=== PATIENT | female | born 1985 | race Caucasian/White ===

== ENCOUNTER → 2023-02-26 11:29 | Outpatient (CLI) | payer BC, SELFPAY ==
--- NOTE | ~2023-02-26 | MR_ITS ---
EXAMINATION: MR knee LT wo con DATE: 02/26/2023 12:19 INDICATION: Medial left knee pain status post sclerotic with a pop sensation 3 weeks ago. TECHNIQUE: Magnetic resonance imaging (MRI) of the left knee was performed without intravenous contra st. Sequences included axial PD-weighted FS FSE, coronal PD-weighted FSE and PD-weighted FS FSE, sagi ttal PD-weighted FSE, and sagittal T2-weighted FS FSE. COMPARISON: X-ray knee 03/27/2013. FINDINGS: Medial compartment: Apical tear of the meniscal body. Small oblique undersurface tear at the junction of the posterior ho rn and body, chronic. Moderate diffuse cartilage thinning. Lateral compartment: Mild diffuse cartilage thinning. Meniscus intact. Patellofemoral compartment: Cartilage and retinacula intact. Quadriceps enthesopathy. Ligaments and tendons: The ACL, PCL, and LCL are intact. Mild diffuse thickening of the MCL likely indicative of a chronic p artial tear. The remaining flexor and extensor tendons are intact. Fluid: Small volume joint fluid. Small Rehman's cyst which dissects superiorly. Osseous/other: No suspicious focal or diffuse marrow signal. Subchondral sclerosis in the medial compartment. Tiny f ocus of marrow edema in the most medial aspect of the medial tibial plateau. IMPRESSION: 1. Apical and oblique undersurface tears of the body and junction of the body and posterior horn, med ial meniscus. 2. Mild tricompartmental osteoarthritic change. 3. Small Rehman's cyst, dissecting superiorly. Reviewed, dictated and finalized at location K. IMPRESSION: 1. Apical and oblique undersurface tears of the body and junction of the body a nd posterior horn, medial meniscus. 2. Mild tricompartmental osteoarthritic change. 3. Small Rehman's cyst, dissecting superiorly.
== END ==
PROVIDERS: PCP Nurse Practitioner; Visit Provider Nurse Practitioner
DX: M17.12 Unilateral primary osteoarthritis, left knee (principal); M71.22 Synovial cyst of popliteal space [Baker], left knee
CPT/HCPCS: 73721

== ENCOUNTER 2023-04-15 03:07 | Day surgery (SDC) | payer BC, SELFPAY ==
[2023-04-11 10:16] VITALS: BMI 20.7
--- NOTE | 2023-04-11 10:21 | PC.NURSE ---
Report to the Outpatient Waiting Room, entrance under the green pavilion located off [facility], at time 0830 on date 04/15/23. Planned Procedure Time: 1030. Time changes happen often and if your time is changed the preop area will call you the afternoon before. - You and your visitor will be asked to self-screen and do not enter if you have any COVID symptoms. - A mask is optional within the hospital at this time. Patients may have clear liquids (water, carbonated beverages, clear teas, apple juice) until 3 hours prior to surgery with a maximum of 20 ounces. - No food from midnight until time of surgery Take the following medications with a SIP of water the morning of surgery: NONE DO NOT STOP ANY OF YOUR OTHER PRESCRIPTION MEDICATIONS PRIOR TO SURGERY EXCEPT THE FOLLOWING Medications to discontinue per physician: N/A Date to take last dose: N/A Please no make-up, nail kinyarwanda, hairspray, perfume, deodorant, or body powder the day of surgery. No jewelry (including any body piercings) or valuables the day of surgery, leave them at home. Please take a shower or bath the night before, or the morning of, surgery with an antibacterial soap. Wear comfortable, loose fitting clothing. - Jewelry must be removed prior to entering the operating room. Rings and piercings that are not removed may be cut off. - The hospital will not accept responsibility for valuables. - Please leave all valuables, including medications, at home the day of surgery. If you are going home after surgery, a licensed jukebox route driver must drive you home. - NO public transportation without another adult if you receive anesthesia. - We recommend that an adult stay with you for 24 hours following discharge. - We also recommend that you do not drive, make important decision, drink alcoholic beverages, or take any drugs that were not prescribed by your health care provider for at least 24 hours after your discharge time. Follow any additional instructions given to you from your surgeon. If you or anyone in your household have experienced Covid symptoms in the past week, please notify your surgeon or the nurse liaison at the phone number below for possible testing. Telephone instructions given to PT - EAMON VALENCIA and asked if any additional questions and then verbalized understanding. Patient advised to call surgeon office or pre surgery nurse liaison [phone] if any additional questions.
--- NOTE | 2023-04-14 17:21 | P.PNAN_ITS ---
Anes - Initial Pre Proc Eval Procedure: Operation Date: 04/15/23 10:30 Proposed Procedures p Left Knee Arthroscopy - Lew Mobley MD Date/Time: 04/14/23 17:21 Surgeon: Lew Mobley MD Pre Op Diagnosis: left knee medial meniscal tear Patient Data Age: 37 Gender: F Height: 1.65 m Weight: 56.7 kg Allergies Allergy/AdvReac Type Severity Reaction Status Date / Time No Known Allergies Allergy Verified 04/15/23 09:47 Home Medications Medication Instructions Recorded Confirmed Type dextroamphetamine-amphetamine ER 20 mg PO DAILY 03/31/23 04/15/23 History 20 mg 24hr capsule,extend release chlorhexidine gluconate 4 % 1 applic topical ONCE #237 mL 04/08/23 04/15/23 Rx topical liquid (Hibiclens) hydrocodone 5 mg-acetaminophen 325 1 tablet PO Q12H PRN pain #20 tabs 04/15/23 Rx mg tablet Patient hx anesthesia problems: none Family hx anesthesia problems: none Results Review: All pre-operative results and documents have been reviewed as part of the pre- operative evaluation. [facility] Past Medical History Medical History (Updated 03/31/23 @ 09:20 by Ruth Clark CMA) Medial meniscus tear (~2001) Surgical History Surgical History (Updated 03/31/23 @ 09:20 by Ruth Clark CMA) History of History of umbilical hernia repair 10/25/19 Family History Family History Mother Patient's mother is in good health Father Patient's father is in good health Grandparent Family history of malignant neoplasm of brain Family history of malignant neoplasm of breast Social History Social History (Updated 03/31/23 @ 09:21 by Ruth Clark CMA) Smoking status: Never smoker Alcohol intake: current Drinks per week: 2 Alcohol use details: 2-3 Substance use: never Substance use type: does not use Living arrangements: with family Occupation/Education: occupation 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 Informed Consent: The patient's anesthetic plan and its attendant risks and benefits were discussed with the patient/family/POA. Questions were solicited and answers provided to the satisfaction of the patient/family/POA.
[2023-04-15] VITALS (12 sets, daily range): BP systolic 90–107; BP diastolic 54–67; PULSE 55–82; RESP 14–18; TEMP 36.6–36.8; O2SAT 96–100
--- NOTE | 2023-04-15 07:25 | WPDHPUPDATE1 ---
History and Physical Update Update Date/Time: 04/15/23 07:25 History and Physical has been reviewed, including an updated exam of the patient. There are NO changes in the patient's condition. Risks, benefits, and alternatives have been discussed and questions answered. Patient agrees to proceed with procedure.
[2023-04-15] MEDS: LACTATED RINGERS 1,000 ML 30 ML IV CONT ×3 (09:00→13:38)
[2023-04-15] MEDS: ACETAMINOPHEN 500 MG TABLET 1000 MG PO (09:00)
[2023-04-15] MEDS: CELECOXIB 200 MG CAPSULE PO (09:00)
[2023-04-15] MEDS: ceFAZolin 2 GM/D5W 50 ML 2 GM/50 ML BAG IVPB (10:22)
[2023-04-15] MEDS: BUPivacaine HCL 0.5% 10 ML AMP 30 ML INFILTRATE (10:42)
--- NOTE | 2023-04-15 11:47 | W.PM.PROC2 ---
Procedure Note - Detailed Date of Procedure 04/15/23 Pre-op Diagnosis left knee medial meniscal tear Post-op Diagnosis Same Procedure Performed LEFT KNEE SCOPE WITH PARTIAL MEDIAL MENISCECTOMY Surgeon Lew Mobley MD Anesthesia General Description of Procedure PATIENT WAS TAKEN TO THE OR. LEFT LEG WAS PREPPED AND DRAPED STERILE. TROCARS WERE PLACED IN THE USUAL FASHION. CAMERA WAS INTRODUCED. THERE WAS NO CHONDROMALACIA TO THE PATELLA FEMORAL JOINT. THERE WAS MODERATE SYNOVITIS IN ALL COMPARTMENTS. THE MEDIAL COMPARTMENT SHOWED MILD CHONDROMALACIA TO THE MEDIAL FEMORAL CONDYLE. A SHAVER WAS USED TO PREFORM A CHONDROPLASTY. THERE WAS A COMPLEX MEDIAL MENISCUS TEAR. THE TEAR WAS RESECTED WITH A BITER AND A SHAVER DOWN TO A SMOOTH BASE. THE ACL WAS INTACT. THE LATERAL MENISCUS WAS NOT TORN. THE LATERAL COMPARTMENT HAD NO CHONDROMALACIA. THE PATELLA TRACKED WELL WITHIN THE GROOVE OF THE TROCHLEA. SYNOVECTOMY WAS PREFORMED IN THE SUPERIOR MEDIAL COMPARTMENT. THE WOUNDS WERE APPROXIMATED WITH 4.0 NYLON. STERILE DRESSING WAS APPLIED. PATIENT WAS EXTUBATED. Estimated Blood Loss 5 Complications No immediate complications Condition Stable Disposition PACU
[2023-04-15] MEDS: fentaNYL CITRATE INJ (*CRX) 100 MCG/2 ML VIAL 25 MCG IV PUSH ×7 (11:50→13:10)
[2023-04-15] MEDS: oxyCODONE HCL (*CRX) 5 MG TAB IR PO (13:22)
[2023-04-15] MEDS: ONDANSETRON INJ 4 MG/2 ML VIAL IV PUSH (13:22)
[2023-04-15] MEDS: diphenhydrAMINE HCl INJ 50 MG/ML VIAL 12.5 MG IV PUSH (13:42)
[2023-04-15] MEDS: SCOPOLAMINE 1.5 MG PATCH TRANSDERM (13:45)
== END 2023-04-15 14:27 | disposition home or self-care (01) ==
PROVIDERS: PCP Nurse Practitioner; Visit Provider Orthopaedic Surgery
PROC: (CPT 29870; principal; 2023-04-15 10:30)
DX: S83.232A Complex tear of medial meniscus, current injury, left knee, initial encounter (principal); X50.0XXA Overexertion from strenuous movement or load, initial encounter; M65.862 Other synovitis and tenosynovitis, left lower leg; M22.42 Chondromalacia patellae, left knee
CPT/HCPCS: 29881; A9270; J0690; J1200; J2250; J2405; J3010; J7120